=== PATIENT | female | born 1955 | race Caucasian/White ===

== ENCOUNTER 2016-04-06 14:20 | Outpatient (CLI) ==
[2016-04-06 14:49] LABS: FLU INTERNAL QC INTERNAL QC VALID; RAPID FLU A NEGATIVE (NEGATIVE); RAPID FLU B NEGATIVE (NEGATIVE)
== END 2016-04-06 14:21 | disposition home or self-care (01) ==
LOC: LAB 14:20
PROVIDERS: ATTEND Family Medicine
DX: J32.9 Chronic sinusitis, unspecified (principal); R05 Cough; J40 Bronchitis, not specified as acute or chronic
CPT/HCPCS: 87081; 87804

== ENCOUNTER 2016-10-20 13:29 | Emergency (ER) ==
[2016-10-20 13:38] VITALS: BP 144/83; TEMP 98.3; BMI 46.6
--- NOTE | 2016-10-20 14:04 | ED.PDOC ---
General ED Provider: Dr. FRANCISCO GUERRIER JR Chief Complaint: Fall Stated Complaint: slipped on linen on floor -- hit both knees with rt knee et lt elbow taking brunt of fall[End]1225 98.3 87 18 95% 144/83 05/18 Time Seen by Physician: 13:58 Mode of Arrival: Walk-In Information Source: Patient Exam Limitations: No limitations Primary Care Provider: RAMIRO AHN Nursing and Triage Documentation Reviewed and Agree: No Review of Systems - Review Of Systems Constitutional: Reports: Malaise, Weakness Eyes: Reports: No symptoms Ears, Nose, Mouth, Throat: Reports: No symptoms Respiratory: Reports: No symptoms Cardiac: Reports: No symptoms GI: Reports: No symptoms : Reports: No symptoms Musculoskeletal: Reports: Joint pain Skin: Reports: Bruising, Lesions Neurological: Reports: No symptoms Endocrine: Reports: No symptoms Hematologic/Lymphatic: Reports: No symptoms All Other Systems: Other Past Medical History - Past Medical History Endocrine: Reports: None Cardiovascular: Reports: Hypertension Respiratory: Reports: Asthma Hematological: Reports: None Gastrointestinal: Reports: None Genitourinary: Reports: None Neuro/Psych: Reports: Depression Musculoskeletal: Reports: None Cancer: Reports: None Last Menstrual Period: hysterectomy - Surgical History General Surgical History: Reports: Hysterectomy, (x2), Hernia Repair ( 2 c-sections, abdominal hernia repair, hysterectomy) - Family History Family History: Reports: Unknown - Social History Smoking Status: Never smoker Hx Substance Use: No Alcohol Screening: None - Immunizations Tetanus Shot up to Date: No () Physical Exam - Physical Exam Appearance: Well-appearing Pain Distress: Moderate Eyes: CATERINA, EOMI, Conjunctiva clear ENT: Ears normal, Nose normal, Oropharynx normal Neck: Supple Respiratory: Airway patent, Breath sounds clear, Breath sounds equal, Respirations nonlabored Cardiovascular: RRR, Pulses normal, No rub, No murmur GI/: Soft, Nontender, No masses, Bowel sounds normal, No Organomegaly Musculoskeletal: Normal strength, ROM intact, No calf tenderness (tender left elbow both patela tender), Edema Skin: Warm, Dry, Normal color Neurological: Sensation intact, Motor intact, Reflexes intact, Cranial nerves intact, Alert, Oriented Psychiatric: Affect appropriate, Mood appropriate Critical Care Note - Critical Care Note Total Time (mins): 0 Course - Course Orders, Labs, Meds: Orders Category Date Time Status ED WOUND CARE .ONCE EMERGENCY 10/20/16 14:03 Active KNEE, LEFT 4 VIEWS Stat RADS 10/20/16 14:01 Completed KNEE, RIGHT 4 VIEWS Stat RADS 10/20/16 13:58 Completed Vital Signs: Temp Pulse Resp BP Pulse Ox 10/20/16 13:33 98.3 F 87 18 144/83 H 95 Departure - Departure Time of Disposition: 15:06 Disposition: HOME SELF-CARE Discharge Problem: Falls Instructions: Contusion in Adults (ED), Abrasion (ED) Condition: Good Pt referred to PMD for follow-up: Yes Additional Instructions: fall precautions ice 20 minutes three times a day tylenol for pain avoid NSAIDS for three days recheck PMD one week repeat xrays if pain not resolved note arthritis both knee caps follow up PMD one week Allergies/Adverse Reactions: Allergies meperidine [From Demerol] Adverse Reaction (Verified 10/20/16 13:39) Anxiety Home Medications: Ambulatory Orders Budesonide/Formoterol Fumarate [Symbicort 160-4.5 Mcg Inhaler] 1 puff INH DAILY 10/20/16 Cholecalciferol (Vitamin D3) [Vitamin D3] 1 cap PO DAILY 10/20/16 Fluoxetine HCl [Prozac] 40 mg PO BID 10/20/16 Hydrochlorothiazide 12.5 mg PO DAILY 10/20/16 Losartan Potassium [Cozaar] 50 mg PO DAILY 10/20/16 Mirtazapine [Remeron] 7.5 mg PO BEDTIME 10/20/16 Montelukast Sodium [Singulair] 10 mg PO BEDTIME 10/20/16 Multivitamin [Daily Multiple Vitamin] 1 tab PO DAILY 10/20/16 Disposition Discussed With: Patient
--- NOTE | 2016-10-20 14:31 | DI ---
EXAM: Four views of the right knee. History: Right knee trauma. Findings: No acute fracture or dislocation. Superior patellar enthesiopathy. Mild tricompartmental joint space narrowing. Impression: No acute osseous abnormality.
--- NOTE | 2016-10-20 14:31 | DI ---
EXAM: Radiographs, right knee HISTORY: Initial presentation for right knee injury due to a fall. COMPARISON: None available. TECHNIQUE: Four views. FINDINGS: Bone mineralization is decreased. There is no fracture or dislocation. Mild osteoarthrit ic changes are present. Small patellar enthesophytes noted. Anterior subcutaneous edema seen in the knee. IMPRESSION: No fracture or dislocation.
== END 2016-10-20 15:17 | disposition home or self-care (01) ==
LOC: ED 13:29
DX: S89.91XA Unspecified injury of right lower leg, initial encounter (principal); S89.92XA Unspecified injury of left lower leg, initial encounter; S59.902A Unspecified injury of left elbow, initial encounter; W01.0XXA Fall on same level from slipping, tripping and stumbling without subsequent striking against object, initial encounter; M17.0 Bilateral primary osteoarthritis of knee
CPT/HCPCS: 99282

== ENCOUNTER 2016-12-02 10:14 | Outpatient (CLI) ==
--- NOTE | 2016-12-02 13:00 | MRI ---
EXAM: MRI right knee without contrast. HISTORY: Right knee pain. Fall 10/20/2016. Edema. No right knee surgery reported.. TECHNIQUE: Using a local extremity coil on a high field strength magnet multiplanar multisequence MR I was performed of the right knee without intravenous or intra-articular gadolinium contrast.. COMPARISON: Four view plain film examination right knee 10/20/2016. FINDINGS: Within the medial compartment the medial meniscus is intact without discrete surfacing men iscal tear. The medial compartment cartilage congruent.. There is tendinosis over the origin medial head gastrocnemius muscle. Associated thickening and increased signal intensity to the capsular ins ertion as well. Underlying remodeling posterior nonweight bearing medial femoral condyle. Within the lateral compartment lateral meniscus is intact without discrete surfacing meniscal tear. The lateral compartment cartilage shows approximate 11 mm area of chondrosis and cartilage ulceration over the weightbearing lateral femoral condyle. Within the patellofemoral compartment the patella seated. Intact patellar attachment of the medial a nd lateral patellar retinaculum. Mild patellar chondrosis/chondromalacia patella. The trochlear sheyla ove cartilage relatively congruent. Early productive osteophyte formation. Small right knee effusion. No osteochondral loose bodies. Intact anterior and posterior cruciate lig aments. Anterior cruciate ligament intrasubstance ganglion formation. This may be in continuity wit h larger bright T2 fluid signal intensity lobulated synovial/ganglion cyst anteriorly at the joint li ne measuring approximate 22 mm wide by 11 mm AP. No translation of the tibia with respect to the fem ur. The extensor mechanism is intact. There is extensive anterior soft tissue edema/swelling. Ther e is a large more organized complex fluid signal intensity collection measuring 11 cm craniocaudad by 15 mm deep by 41 mm wide which may reflect soft tissue contusion/evolving hematoma. The medial junior ateral ligament as well as lateral collateral ligament complex and posterolateral corner intact.. IMPRESSION: No discrete surfacing meniscal tear identified. Mild patellar chondrosis/chondromalacia patella. Small right knee effusion. Intact cruciate and collateral ligaments. Anterior cruciate ligament int rasubstance ganglion formation. This may be in continuity with larger synovial/ganglion cyst anterio rly at the joint line measuring 22 mm. No acute fracture/stress fracture. Tendinosis over the origin medial head gastrocnemius muscle. Associated thickening and increased sig nal intensity to the capsular insertion as well which may reflect some degree of low grade tear/injur y. Extensive anterior superficial soft tissue edema/swelling. Large more organized complex fluid collec tion measuring 11 cm craniocaudad which may reflect soft tissue contusion/evolving hematoma.
== END 2016-12-02 10:15 | disposition home or self-care (01) ==
LOC: RAD 10:14
PROVIDERS: ATTEND Family Medicine
DX: M25.561 Pain in right knee (principal); Y99.0 Civilian activity done for income or pay

== ENCOUNTER 2017-11-15 12:57 | Emergency (ER) | payer OTHER ==
[2017-11-15 13:02] VITALS: BP 134/85; TEMP 98.7; BMI 49.4
--- NOTE | 2017-11-15 13:53 | ED.PDOC ---
General ED Provider: Dr. PAULO MONTALVO Chief Complaint: Foot Pain/Injury Stated Complaint: Wednesday; walking, ankle twisted - pain in ankle and knee with the movement although cought herself and did not go down. Time Seen by Physician: 13:45 Mode of Arrival: Walk-In Information Source: Patient Exam Limitations: No limitations Primary Care Provider: RAMIRO AHN Nursing and Triage Documentation Reviewed and Agree: Yes Does patient meet sepsis criteria?: No System Inflammatory Response Syndrome: Not Applicable Sepsis Protocol: For patient's 13 years and over: Temp is 96.8 and below OR 101 and greater Pulse >90 BPM Resp >20/minute Acutely Altered Mental Status Are patient's symptoms suggestive of a new infection, such as: -Pneumonia -Skin, Soft Tissue -Endocarditis -UTI -Bone, Joint Infection -Implantable Device -Acute Abdominal Infection -Wound Infection -Meningitis -Blood Stream Catheter Infection -Unknown Musculoskeletal Complaint Exam - Lower Extremity Complaint/Exam Location of Pain: Reports: Right, Ankle, Knee Mechanism of Injury: Reports: Other (Walking; R ankle twisted - did not fall. [place] immediate pain foot, ankle and knee - pain continues) Onset/Duration: 2 days ago Symptoms Are: Still present Onset of Pain: Reports: Immediate Initial Severity: Moderate Current Severity: Moderate Location: Reports: Diffuse (R foot and ankle - mostly hindfoot and anterior and posterior knee) Character: Reports: Dull Alleviating: Reports: Rest Aggravating: Reports: Movement, Weight bearing Able to Bear Weight: Yes DVT Risk Factors: Reports: None Differential Diagnoses: Arthritis, Strain, Sprain Review of Systems - Review Of Systems Constitutional: Reports: No symptoms Musculoskeletal: Reports: Joint pain (R knee, ankle and foot) Neurological: Reports: No symptoms All Other Systems: Reviewed and Negative Past Medical History - Past Medical History Endocrine: Reports: None Cardiovascular: Reports: Hypertension Respiratory: Reports: Asthma Hematological: Reports: None Gastrointestinal: Reports: None Genitourinary: Reports: None Neuro/Psych: Reports: Depression Musculoskeletal: Reports: None Cancer: Reports: None Last Menstrual Period: none Other Pertinent Past Medical History: htn asthm dep - Surgical History General Surgical History: Reports: Hysterectomy, (x2), Hernia Repair ( 2 c-sections, abdominal hernia repair, hysterectomy) - Family History Family History: Reports: Unknown - Social History Smoking Status: Never smoker Hx Substance Use: No Alcohol Screening: None Physical Exam - Physical Exam Appearance: Well-appearing Pain Distress: Mild Musculoskeletal: Normal strength, ROM intact, No edema Skin: Warm, Dry, Normal color Neurological: Sensation intact, Motor intact, Alert, Oriented Psychiatric: Affect appropriate, Mood appropriate Interpretation - Radiology Interpretation Radiology Interpretation By: Radiologist Radiology Results: No acute changes Exam Interpreted: Other (R foot; ankle and knee. Changes in foot/ankle not clinically correlated on an acute basis) Re-Evaluation - Re-Evaluation Time of Re-Evaluation: 14:45 Status: Unchanged Vital Signs Stable: Yes Appearance: NAD Neuro: Alert and Oriented X3 (Discussed X ray results and clinical picture) Critical Care Note - Critical Care Note Total Time (mins): 15 Course - Course Orders, Labs, Meds: Orders Category Date Time Status ANKLE, RIGHT MIN 3 VIEWS Stat RADS 11/15/17 13:52 Completed FOOT, RIGHT 3 VIEWS Stat RADS 11/15/17 13:53 Completed KNEE, RIGHT 4 VIEWS Stat RADS 11/15/17 13:51 Completed Vital Signs: Temp Pulse Resp BP Pulse Ox 11/15/17 13:00 98.7 F 80 18 134/85 93 L Departure - Departure Time of Disposition: 14:58 Disposition: HOME SELF-CARE Discharge Problem: Strain of ankle, right, Strain of knee Instructions: Knee Pain (ED), Ankle Strain (ED) Condition: Good Pt referred to PMD for follow-up: Yes (Follow up with primary care provider) IPMP verified?: No (Not indicated) Additional Instructions: Activity as tolerated; ibuprofen for discomfort. Follow up with primary care provider if not better in 7 to 10 days. Allergies/Adverse Reactions: Allergies meperidine [From Demerol] Adverse Reaction (Verified 11/15/17 13:03) Anxiety Home Medications: Ambulatory Orders Budesonide/Formoterol Fumarate [Symbicort 160-4.5 Mcg Inhaler] 1 puff INH DAILY 10/20/16 Cholecalciferol (Vitamin D3) [Vitamin D3] 1 cap PO DAILY 10/20/16 Fluoxetine HCl [Prozac] 40 mg PO BID 10/20/16 Hydrochlorothiazide 12.5 mg PO DAILY 10/20/16 Losartan Potassium [Cozaar] 50 mg PO DAILY 10/20/16 Mirtazapine [Remeron] 7.5 mg PO BEDTIME 10/20/16 Montelukast Sodium [Singulair] 10 mg PO BEDTIME 10/20/16 Multivitamin [Daily Multiple Vitamin] 1 tab PO DAILY 10/20/16 Azelastine HCl [Astelin 0.1%] 2 spray NS BID 11/15/17 Fluticasone Propionate [Flonase] 2 spray NS DAILY 11/15/17
--- NOTE | 2017-11-15 14:19 | DI ---
EXAM: Three views of the right foot HISTORY: Pain COMPARISON: None available FINDINGS: No fracture or dislocation is identified. The joint spaces are maintained. No erosive changes are s een. Moderate distal Achilles insertion and plantar fascial insertion degenerative calcaneal entheso phytes are seen. There is dorsal soft tissue swelling. IMPRESSION: No acute osseous abnormality. Dorsal soft tissue swelling. Calcaneal spurs.
--- NOTE | 2017-11-15 14:20 | DI ---
EXAM: RIGHT KNEE. HISTORY: Knee pain. FINDINGS: Right knee four view. General bone density appears normal. Articular cartilage within th e joints is normal. There is no osteochondral fragmentation, fracture or joint effusion. Early enth esopathy of the anterior patella. Soft tissues reveal no acute finding. IMPRESSION: No acute radiographic finding.
--- NOTE | 2017-11-15 14:22 | DI ---
Exam: Three views of the right ankle. Comparison 06/23/2008 Reason for exam: Pain. FINDINGS: The talar dome appears intact. There are tiny osseous density seen adjacent to the latera l malleolus on the frontal view. No abnormal widening of the medial or lateral clear space. There i s a moderate amount of adjacent soft tissue swelling. Impression: 1. No obvious fracture or dislocation in the right ankle. 2. Soft tissue calcifications adjacent to the lateral malleolus on the frontal view may represent de generative disease but may also represent tiny avulsion fracture. Recommend correlation with the sit e of patient's pain.
== END 2017-11-15 15:10 | disposition home or self-care (01) ==
LOC: ED 12:57
DX: S96.911A Strain of unspecified muscle and tendon at ankle and foot level, right foot, initial encounter (principal); S86.811A Strain of other muscle(s) and tendon(s) at lower leg level, right leg, initial encounter; X50.1XXA Overexertion from prolonged static or awkward postures, initial encounter
CPT/HCPCS: 99283

== ENCOUNTER 2018-03-15 08:58 | Outpatient (CLI) | payer OTHER | END 2018-03-15 08:59 | disposition home or self-care (01) | LOC: LAB 08:58 | PROVIDERS: ATTEND Nurse Anesthetist, Certified Registered | DX: Z01.812 Encounter for preprocedural laboratory examination (principal) | CPT/HCPCS: 36415; 80053 ==